=== PATIENT | female | born 1945 | race Caucasian/White ===

== ENCOUNTER 2018-04-29 14:18 | Outpatient (CLI) | payer MEDICARE, OTHER ==
[~2018-04-29 14:18] MED LIST: GADOXETATE DISODIUM 2.5 MMOL/10 ML ONE
== END 2018-04-29 23:59 | disposition home or self-care (01) ==
LOC: CFH 14:18
PROVIDERS: ATTEND Internal Medicine Gastroenterology
DX: K76.89 Other specified diseases of liver (principal); M47.819 Spondylosis without myelopathy or radiculopathy, site unspecified; M41.86 Other forms of scoliosis, lumbar region; D18.09 Hemangioma of other sites
CPT/HCPCS: 74183; A9581